=== PATIENT | female | born 1995 | race Caucasian/White ===

== ENCOUNTER 2020-05-09 02:06 | Inpatient (IN) ==
[2020-05-09] MEDS ORDERED: RINGER'S SOLUTION,LACTATED 1,000 ML IV PRN (02:48)
[2020-05-09] MEDS ORDERED: DEXTROSE 5%-LACTATED RINGERS 1,000 ML IV PRN (03:21)
[2020-05-09] MEDS ORDERED: RINGER'S SOLUTION,LACTATED 1,000 ML IV ONE (03:21)
[2020-05-09] MEDS ORDERED: OXYTOCIN/0.9 % SODIUM CHLORIDE 30 UNITS/500 ML BAG IV ONE ×2 (03:21→13:24)
[2020-05-09] MEDS ORDERED: LIDOCAINE HCL 50 ML VIAL PERI PRN (03:21)
[2020-05-09] MEDS ORDERED: ONDANSETRON 4 MG TAB.RAPDIS PO PRN (03:21)
[2020-05-09] MEDS: ceFAZolin SODIUM 1 GM in DEXTROSE 5 % IN WATER 100 ML IV SCH ×6 (04:00→21:10)
[2020-05-09] MEDS ORDERED: BUPIVACAINE HCL/0.9 % NACL/PF 250 ML EP PRN (04:07)
[2020-05-09] MEDS ORDERED: NALOXONE HCL 1 MG/1 ML SYRG IV PRN (04:07)
[2020-05-09] MEDS ORDERED: ONDANSETRON HCL/PF 2 MG/ML VIAL IV PRN (04:07)
[2020-05-09] MEDS ORDERED: fentaNYL CITRATE/PF 50 MCG/ML AMPUL IT SCH (04:15)
--- NOTE | 2020-05-09 05:09 | ANES ---
Post Anesthesia Discharge - Transfer of Care Transfer of Care handoff given to nurse: Yes - Anesthesia Post Op Note Anesthesia Post Op Note: Care transferred to OB RN
--- NOTE | 2020-05-09 05:09 | ANES ---
Anesthesia Pre Procedure Eval Vitals/Labs: Last Vital Signs Temp 36.0 C 05/09/20 02:47 Pulse 82 05/09/20 02:47 Resp 20 05/09/20 02:47 BP 135/80 05/09/20 02:47 Pulse Ox 99 05/09/20 02:47 HOME MEDICATIONS ascorbic acid (vitamin C) 500 mg tablet 500 mg PO DAILY 10/05/19 [Last Taken 05/07/20] calcium carbonate 600 mg (1,500 mg)-vitamin D3 400 unit tablet 1 tab PO DAILY 10/05/19 [Last Taken 05/07/20] prenat.vits,tangela,jzc-ssui-lezgj 1 tab PO DAILY 10/05/19 [Last Taken 05/08/20] breast pump See Rx Instructions .ROUTE .MEDSUPPLY #1 ea 03/14/20 [Last Taken Unknown] ferrous sulfate 325 mg (65 mg iron) tablet 325 mg PO DAILY 03/14/20 [Last Taken Unknown] Allergies/Adverse Reactions: Allergies Allergy/AdvReac Type Severity Reaction Status Date / Time amoxicillin AdvReac RASH Verified 05/09/20 02:17 - Planned Procedure Planned Procedure: Labor Medication List Reviewed:: Yes Allergies Verified: Yes Medical History (Last Reviewed 05/09/20 @ 05:08 by Allen Campos CRNA) No pertinent past medical history Surgical History (Last Reviewed 05/09/20 @ 05:08 by Allen Campos CRNA) No pertinent past surgical history Family History (Last Reviewed 05/09/20 @ 05:08 by Allen Campos CRNA) Mother Anxiety Father Anxiety Grandfather Cancer prostate - Family Anesthesia History Family History:: no untoward family reactions to anesthesia - Airway/Neck/Teeth Within Normal Limits:: Yes Teeth Condition: intact Neck Exam: full range of motion Mallampatti Score: 2 Thyromental (T-M) distance: > 6 cm Mandibulo Hyoid distance: > 3 cm - Respiratory Respiratory Physical: lungs clear Smoking Status: Never smoker Sleep Apnea currently treated: No Sleep Apnea by current assessment: No - Cardiovascular Tolerate Activity: Good Heart Sounds: S1 & S2, Regular - Gastrointestinal NPO since: MN - Anesthesia Assessment and Plan ASA Class: PS, II, E Anesthesia Type Plan: Epidural Planned difficult intubation/equipment available: No
--- NOTE | 2020-05-09 05:09 | ANES ---
Post Anesthesia Assessment - Vital Signs Vitals: Last Vital Signs Temp 36.0 C 05/09/20 02:47 Pulse 82 05/09/20 02:47 Resp 20 05/09/20 02:47 BP 135/80 05/09/20 02:47 Pulse Ox 99 05/09/20 02:47 Airway Patency: Normal - Mental Status Level Of Consciousness: Awake - Pain Level Pain Score: 2 - N/V Assessment Nausea/Vomiting Presence: None Dehydration:: No
--- NOTE | 2020-05-09 05:11 | ANES ---
Anesthesia Procedure Note Procedure Note: ANESTHESIA PROCEDURE NOTE Date of Procedure: 05/09/2020 Time of procedure: . Performed by: Joe Campos CRNA Professional Programmer Analyst: None. Preprocedure diagnosis: Active labor. Post procedure diagnosis: Same. Procedure: Insertion of labor epidural. Indications: The patient is a 25-year-old prima para female in active labor requesting labor epidural for pain management. Findings: See below. Details of the procedure: The patient was placed in a sitting position. Back was prepped with DuraPrep. Patient was then draped in a sterile fashion. Lidocaine 1% was infiltrated to the skin and subcutaneous tissues at the level of the L3 4 interspace. The epidural space was identified using a 18-gauge Tuohy needle with [id number] technique. 20 mcg fentanyl was given intrathecally using a 27 ga. spinal needle. Epidural catheter was inserted without difficulty. Negative test dose was elicited using 5 mL of 1.5% preservative-free lidocaine plus epinephrine 1 200,000. The epidural catheter was then taped and secured in place. EBL: Minimal. Fluids: N/A. Specimen: N/A. Post procedure condition: The patient tolerated the procedure well. No complications were noted. Thank you for this consultation. Rausch CRNA
--- NOTE | 2020-05-09 08:25 | HP ---
Chief Complaint - Chief Complaint Date of Service: 05/09/20 Time of Service: 08:18 Chief Complaint: Labor History of Present Illness: 25 year old at 36w 6d who presented in labor. She made cervical change from 4 cm to 5cm. She also ruptured her membranes spontaneously. She is now 7 cm and on pitocin for augmentation of labor. She is comfortable with her epidural. She reports regular ctx. She reports loss of fluid. She denies vb. Fetus is active. Medical History (Last Reviewed 05/09/20 @ 08:21 by Tran Miranda MD) No pertinent past medical history Surgical History: Surgical History (Last Reviewed 05/09/20 @ 08:21 by Tran Miranda MD) No pertinent past surgical history Family History: Family History (Last Reviewed 05/09/20 @ 08:21 by Tran Miranda MD) Mother Anxiety Father Anxiety Grandfather Cancer prostate Social History: (Last Reviewed 05/09/20 @ 08:21 by Tran Miranda MD) Social History: adopted: No Marital status: household members: significant other current occupational status: employed current occupation: RN Highest education level completed: Associate degree: occupat Service: No Tobacco: Smoking Status: Never smoker Alcohol: alcohol intake: current alcohol intake frequency: a few times a month Substance Use: substance use type: does not use Dietary Habits: caffeine: Yes caffeine comment: 1-2 daily Type: carbonated beverages Review Of Systems (GEN) - Review of Systems Generalized/Overall Review: Present: No Symptoms Reported Misc: All systems neg except as marked Immunizations: IMMUNIZATION HX Immunizations Up to Date Yes History of Influenza Vaccine No Hx Pneumococcal Vaccination No Allergies/Adverse Reactions: Allergies Allergy/AdvReac Type Severity Reaction Status Date / Time amoxicillin AdvReac RASH Verified 05/09/20 02:17 Home Medications: HOME MEDICATIONS ascorbic acid (vitamin C) 500 mg tablet 500 mg PO DAILY 10/05/19 [Last Taken 05/07/20] calcium carbonate 600 mg (1,500 mg)-vitamin D3 400 unit tablet 1 tab PO DAILY 10/05/19 [Last Taken 05/07/20] prenat.vits,tangela,yvu-wnxe-cvyis 1 tab PO DAILY 10/05/19 [Last Taken 05/08/20] breast pump See Rx Instructions .ROUTE .MEDSUPPLY #1 ea 03/14/20 [Last Taken Unknown] ferrous sulfate 325 mg (65 mg iron) tablet 325 mg PO DAILY 03/14/20 [Last Taken Unknown] Exam - Exam Vital Signs: Vital Signs - Last Taken Temp 36.0 C 05/09/20 02:47 Pulse 82 05/09/20 02:47 Resp 20 05/09/20 02:47 BP 135/80 05/09/20 02:47 Pulse Ox 99 05/09/20 02:47 Constitutional: Present: Alert, Oriented x3, Cooperative, No distress ENT Exam: Present: hearing grossly normal Eye Exam: bilateral eye: normal inspection Neck: Present: normal inspection Back Exam: Present: normal inspection Respiratory: Present: lungs clear, normal breath sounds, no respiratory distress Cardiovascular/Chest: Present: regular rate, rhythm Abdomen: Present: nontender, nondistended Extremity: Present: non-tender, no calf tenderness Skin Exam: Present: normal color, warm/dry, no cyanosis Neurologic: Present: alert, normal mood/affect, oriented x 3 Appearance: Present: appropriate appearance, appropriate insight, neat Eye contact: Present: cooperative, good eye contact, normal speech Thoughts: Present: normal thought pattern Diagnostic Studies: Laboratory Results Blood Type B Negative 05/09/20 03:35 Antibody Screen Positive 05/09/20 03:35 Assessment/Plan - Narrative Narrative: 25 year old at 36w 6d Labor: On pitocin for augmentation of labor GBS unknown: Ancef for GBS prophylaxis - Assessment/Plan (1) 36 weeks gestation of Problem: Acute (2) Normal first in third trimester Problem: Acute (3) Rh negative, maternal Problem: Acute Qualifiers: Trimester: third trimester
[2020-05-09] MEDS ORDERED: ceFAZolin SODIUM 1 GM in DEXTROSE 5 % IN WATER 100 ML IV SCH ×2 (11:22)
[2020-05-09] MEDS ORDERED: BENZOCAINE/MENTHOL 81 SPRAY CAN TP PRN (13:24)
[2020-05-09] MEDS ORDERED: BISACODYL 10 MG SUPP.RECT RC PRN (13:24)
[2020-05-09] MEDS ORDERED: HYDROCORTISONE 30 APPL TUBE TP PRN (13:24)
[2020-05-09] MEDS ORDERED: GLYCERIN/WITCH HAZEL LEAF 40 APPL BOX TP PRN (13:24)
[2020-05-09] MEDS ORDERED: diphenhydrAMINE HCL 25 MG CAPSULE PO PRN (13:24)
[2020-05-09] MEDS ORDERED: SENNOSIDES 8.6 MG TABLET PO PRN (13:24)
--- NOTE | 2020-05-09 13:28 | OR ---
Vacuum-Assist Vaginal Delivery Date:: 05/09/20 Time:: 13:26 Pre Op Diagnosis/Indication for use:: Other - maternal exhaustion, tachycardia Heart Rate Interpretation:: Reassuring EFW:: 3400 grams Station:: +5 Position of the head: OA Cervix:: The cervix was completely dilated and effaced. Maternal- size appropriate for application. The bladder was emptied. Counseling:: Patient counseling: Indications discussed and questions answered. The patient consented to operative delivery. - Details of Procedure: Cup Placement:: Flexion point identified. Cup choice appropriate for application site. Maternal tissue excluded from vacuum cup. Station at application:: +5 Anesthesia Type: Epidural Laceration Type:: Vaginal - 1st degree, hemostatic and thus not repaired - Vacuum Application: Vacuum Used:: Mushroom Number of pulls/contractions:: 3 Number of involuntary releases:: 0 Vacuum event:: The vacuum was reduced between contractions. There was advancement in station with each pull. - Post Procedure Eval: Sex: Male Delivery Date: 05/09/20 Delivery Time: 13:15 Extraction successful:: Yes Amniotic Fluid Color: Clear Placenta Delivery: Spontaneous injury/anomalies:: No Maternal EBL:: 100 mL Shoulder Dystocia:: No Nuchal Cord: N/A
[2020-05-09] MEDS: oxyCODONE HCL/ACETAMINOPHEN 1 TAB TABLET PO PRN ×3 (15:03→23:26)
[2020-05-09] MEDS: IBUPROFEN 800 MG TABLET PO PRN ×2 (15:04→22:36)
[2020-05-09] MEDS ORDERED: RHO(D) IMMUNE GLOBULIN 1,500 UNIT SYRINGE IM ONE (21:10)
[2020-05-09] MEDS: DOCUSATE SODIUM 100 MG CAPSULE PO SCH (22:38)
[2020-05-10] MEDS ORDERED: RHO(D) IMMUNE GLOBULIN 1,500 UNIT SYRINGE IM ONE (01:43)
[2020-05-10] MEDS: oxyCODONE HCL/ACETAMINOPHEN 1 TAB TABLET PO PRN ×3 (02:42→15:36)
[2020-05-10] MEDS: IBUPROFEN 800 MG TABLET PO PRN ×3 (05:08→19:08)
[2020-05-10] MEDS: DOCUSATE SODIUM 100 MG CAPSULE PO SCH ×3 (07:15→20:31)
--- NOTE | 2020-05-10 16:52 | PN ---
Subjective - Date and Time Seen Date: 05/10/20 Time: 16:49 Subjective Narrative: Patient without complaints Objective Objective Narrative: See vitals signs - Review of Systems Generalized/Overall Review: Reports: No Symptoms Reported Misc: All systems neg except as marked - Vitals Vitals: Last Vital Signs Temp 35.8 C L 05/10/20 07:35 Pulse 75 05/10/20 07:35 Resp 20 05/10/20 07:35 BP 141/68 H 05/10/20 07:35 Pulse Ox 99 05/10/20 07:35 - Exam Constitutional: Present: Alert, Oriented x3, Cooperative, No distress Abdomen: Present: soft, nontender, nondistended - fundus is firm Extremity: Present: non-tender, no calf tenderness Skin Exam: Present: normal color, warm/dry, no cyanosis Neurologic: Present: alert, normal mood/affect, oriented x 3 Appearance: Present: appropriate appearance, appropriate insight, neat, no memory impairment Eye contact: Present: cooperative, good eye contact, normal speech Thoughts: Present: normal thought pattern Cauti Physician Documentation - Urinary Catheter Management Urethral (Mejia) Urethral Indwelling: No Date of Insertion: 05/09/20 Time of Insertion: 05:10 Date of Removal: 05/09/20 Time of Removal: 12:30 Assessment/Plan Plan Narrative: PPD 1 s/p Doing well Discharge tomorrow - Problems/Diagnosis (1) 36 weeks gestation of Problem: Acute (2) Normal first in third trimester Problem: Acute (3) Rh negative, maternal Problem: Acute Qualifiers: Trimester: third trimester
[2020-05-11] MEDS: oxyCODONE HCL/ACETAMINOPHEN 1 TAB TABLET PO PRN ×2 (01:03→12:44)
[2020-05-11] MEDS: IBUPROFEN 800 MG TABLET PO PRN (06:08)
--- NOTE | 2020-05-11 09:25 | PN ---
Subjective - Date and Time Seen Date: 05/11/20 Time: 09:24 Objective - Vitals Vitals: Last Vital Signs Temp 36.4 C 05/11/20 00:47 Pulse 74 05/11/20 00:47 Resp 16 05/11/20 00:47 BP 118/64 05/11/20 00:47 Pulse Ox 98 05/11/20 00:47 Patient denies complaints. Lochia wnl abdomen - soft, nontender Uterus -firm, at umbilicus - 2 No calf tenderness Impression: day #2 - s/p spontaneous vaginal delivery. Plan: Routine discharge instructions. Follow-[facility] with Dr. Miranda as scheduled[facility] - [facility] Catheter Management Urethral (Mejia) Urethral Indwelling: No Date of Insertion: 05/09/20 Time of Insertion: 05:10 Date of Removal: 05/09/20 Time of Removal: 12:30
[2020-05-11 10:31] VITALS: BP 137/77
[2020-05-11] MEDS: DOCUSATE SODIUM 100 MG CAPSULE PO SCH (15:07)
== END 2020-05-11 13:00 | disposition home or self-care (01) | DRG 806 ==
LOC: OBCLINIC 02:06 → OB 03:19 → MS 05-10 13:36
PROVIDERS: ADMIT Obstetrics & Gynecology; ATTEND Obstetrics & Gynecology